=== PATIENT | male | born 1975 | race Caucasian/White ===

== ENCOUNTER → 2017-08-16 | Outpatient (CLI) | payer BC ==
[2017-08-18 21:59] LABS: Pork IgG 4.3 mcg/mL (< 2.0)
[2017-08-18 22:00] LABS: Beef IgG 13.3 mcg/mL (< 2.0); Chicken Meat IgG < 2.0 mcg/mL (< 2.0); Corn IgG 5.2 mcg/mL (< 2.0); Peanut IgG 7.6 mcg/mL (< 2.0); Potato IgG 2.7 mcg/mL (< 2.0); Soybean IgG 3.2 mcg/mL (< 2.0); Tomato IgG 5.9 mcg/mL (< 2.0); Wheat IgG 20.4 mcg/mL (< 2.0)
== END | disposition home or self-care (01) ==
LOC: LABWHC1 09:21
PROVIDERS: ATTEND Otolaryngology
DX: L50.0 Allergic urticaria (principal)
CPT/HCPCS: 36415; 86001